=== PATIENT | male | born 1970 | race Caucasian/White ===

== ENCOUNTER 2019-05-02 19:42 | Observation (INO) | payer BC ==
[2019-05-02] MEDS ORDERED: BABY ASPIRIN 81 MG CHEW PO ONE (20:14)
[2019-05-02] MEDS ORDERED: Zofran 4 MG/2 ML VIAL IV ONE (20:14)
[2019-05-02] MEDS ORDERED: Sodium Chloride 0.9% 1000 ML 1,000 ML IV STA (20:14)
[2019-05-02 20:32] LABS: Absolute Neutrophil Ct (ANC) 3.82 (1.4-6.9); BASOPHIL % 0.4 % (0.0-0.4); Basophil (Absolute #) 0.03 (0-0.4); Eosinophil % 2.6 % (0.00-5.0); Eosinophil (Absolute #) 0.18 (0-0.5); Hematocrit 41.4 % (42-50); Hemoglobin 13.7 gm/dl (12.5-18.0); Lymphocyte (Absolute #) 2.17 (1.0-4.6); Lymphocytes % 31.1 % (24.0-44.0); Mean Cell Volume 81.8 fl (78-100); Mean Corpuscular Hemoglobin 27.1 pg (26-32); Mean Corpuscular Hgb Concent. 33.1 g/dl (32-36); Mean Platelet Volume 9.5 fl (6-9.5); Monocyte (Absolute #) 0.78 (0.0-1.3); Monocytes % 11.2 % (0.0-12.0); Neutrophil % 54.7 % (36.0-66.0); Platelet Count 198 K/mm3 (150-450); Red Blood Count 5.06 M/mm3 (4.1-5.6); Red Cell Distribution Width 14.3 % (11.5-14.0)
[2019-05-02] MEDS ORDERED: Zofran 4 MG/2 ML VIAL ONE (20:41)
[2019-05-02] MEDS ORDERED: BABY ASPIRIN 81 MG CHEW ONE (20:41)
[2019-05-02] MEDS ORDERED: Sodium Chloride 0.9% 1000 ML 1,000 ML ONE (20:41)
[2019-05-02 20:54] LABS: ALBUMIN 4.3 g/dL (3.5-5.0); ALKALINE PHOSPHATASE 60 U/L (38-126); ANION GAP 13.8 MEQ/L (5-15); BLOOD UREA NITROGEN 15 mg/dL (9-20); CHLORIDE 104 mmol/L (98-107); Calcium 9.5 mg/dL (8.4-10.2); Carbon Dioxide 26 mmol/L (22-30); Creatinine 1 0.72 mg/dL (0.66-1.25); Glucose 103 mg/dL (74-106); NT PRO BNP 260 pg/mL (0-900); Potassium 3.5 mmol/L (3.5-5.1); SGOT/AST 29 U/L (17-59); SGPT/ALT 25 U/L (0-50); SODIUM 141 mmol/L (137-145)
--- NOTE | 2019-05-02 20:56 | ERPHSYRPT ---
- History of Present Illness Time Seen by Provider: 05/02/19 19:44 Historian: patient Exam Limitations: no limitations Patient Subjective Stated Complaint: pt c/o htn and had an episode of chest discomfort but is not having that now. Pt states, "I think I may be dehydrated ". Triage Nursing Assessment: pt ambulated to rm 4, alert and oriented x3, plesant and cooperative. Pt c/o htn tonight with a weird sensation down his legs. Pt had an "episode" of chest pain this evening but denies any c/p at this time. Pt is very anxious due to some recent cardiac/lungs tests done by Dr. Almonte and Dr. Maciel. Lungs clear, abd soft with active bs x4 quad, nontender. Physician History: Patient is here for leg tingling and chest pain. It started earlier tonight. He then took his blood pressure and it was elevated. Therefore, came into the ER. Patient is no asymptomatic. Timing/Duration: today Activities at Onset: none Quality: aching Location: substernal Chest Pain Radiation: no radiation Severity of Pain-Max: mild Severity of Pain-Current: mild Modifying Factors: Improves With: nothing Associated Symptoms: other (No SOB, N/V, patient has lower leg tingling ) Aspirin Treatment Today: no aspirin today Allergies/Adverse Reactions: No Known Drug Allergies Allergy (Unverified 05/02/19 20:09) Home Medications: Famotidine [Pepcid] 40 mg PO DAILY 05/02/19 [History] Metoprolol Succinate 50 mg PO DAILY 05/02/19 [History] Sertraline HCl [Zoloft] 100 mg PO DAILY 05/02/19 [History] Hx Tetanus, Diphtheria Vaccination/Date Given: Yes Hx Influenza Vaccination/Date Given: No Hx Pneumococcal Vaccination/Date Given: No Immunizations Up to Date: Yes - Review of Systems Constitutional: No Fever, No Chills Eyes: No Symptoms Ears, Nose, & Throat: No Symptoms Respiratory: No Cough, No Dyspnea Cardiac: Chest Pain, No Edema, No Syncope Abdominal/Gastrointestinal: No Abdominal Pain, No Nausea, No Vomiting, No Diarrhea Genitourinary Symptoms: No Dysuria Musculoskeletal: No Back Pain, No Neck Pain Skin: No Rash Neurological: No Dizziness, No Focal Weakness, No Sensory Changes Psychological: No Symptoms Endocrine: No Symptoms All Other Systems: Reviewed and Negative - Past Medical History Pertinent Past Medical History: Yes Neurological History: No Pertinent History ENT History: No Pertinent History Cardiac History: Angina, Hypertension Respiratory History: Bronchitis Endocrine Medical History: No Pertinent History Musculoskeletal History: No Pertinent History GI Medical History: GERD, Gallbladder Disease History: Other Psycho-Social History: Anxiety Male Reproductive Disorders: No Pertinent History Other Medical History: cyst to ureter - Past Surgical History Past Surgical History: Yes Neuro Surgical History: No Pertinent History Cardiac: Cardiac Catheterization Respiratory: No Pertinent History Gastrointestinal: Appendectomy, Cholecystectomy Genitourinary: Other Musculoskeletal: No Pertinent History Male Surgical History: No Pertinent History Other Surgical History: rotaruter to ureter due to cyst - Social History Smoking Status: Former smoker Exposure to second hand smoke: Yes Drug Use: none Patient Lives Alone: No - Nursing Vital Signs Nursing Vital Signs: Initial Vital Signs Temperature 97.8 F 05/02/19 19:42 Pulse Rate 83 05/02/19 19:42 Respiratory Rate 15 05/02/19 19:42 Blood Pressure 152/83 05/02/19 19:42 O2 Sat by Pulse Oximetry 96 05/02/19 19:42 Pain Scale Pain Intensity 0 - Physical Exam General Appearance: no apparent distress, alert Eye Exam: PERRL/EOMI, eyes nml inspection Ears, Nose, Throat Exam: normal ENT inspection, moist mucous membranes Neck Exam: normal inspection, non-tender, supple, full range of motion Respiratory Exam: normal breath sounds, lungs clear, No respiratory distress Cardiovascular Exam: regular rate/rhythm, normal heart sounds Gastrointestinal/Abdomen Exam: soft, No tenderness, No mass Back Exam: normal inspection, No CVA tenderness, No vertebral tenderness Extremity Exam: normal inspection, normal range of motion Neurologic Exam: alert, oriented x 3, cooperative, normal mood/affect, sensation nml, No motor deficits Skin Exam: normal color, warm, dry SpO2: 96 Ordered Tests: Active Orders 24 hr Category Date Time Status EKG-ER Only STAT Care 05/02/19 20:14 Active IV Insertion STAT Care 05/02/19 20:14 Active CHEST 2 VIEWS (PA AND LAT) Stat Exams 05/02/19 20:15 Taken CBC W DIFF Stat Lab 05/02/19 20:28 Completed CMP Stat Lab 05/02/19 20:28 Completed D-DIMER QUANTITATION Stat Lab 05/02/19 20:28 Completed NT PRO BNP Stat Lab 05/02/19 20:28 Completed TROPONIN Q3H Lab 05/02/19 20:28 Completed Transfer Order Routine Transfer 05/02/19 Ordered Medication Summary Discontinued Medications Generic Name Dose Route Start Last Admin Trade Name Merna PRN Reason Stop Dose Admin Aspirin 324 mg 05/02/19 20:14 05/02/19 20:42 Baby Aspirin 81 Mg Chew PO 05/02/19 20:15 324 mg STAT ONE Administration Aspirin Confirm 05/02/19 20:41 Baby Aspirin 81 Mg Chew Administered 05/02/19 20:42 Dose 324 mg .ROUTE .STK-MED ONE Sodium Chloride 1,000 mls @ 999 mls/hr 05/02/19 20:14 05/02/19 20:42 Sodium Chloride 0.9% 1000 Ml IV 05/02/19 21:14 999 mls/hr .Q1H1M STA Administration Sodium Chloride Confirm 05/02/19 20:41 Sodium Chloride 0.9% 1000 Ml Administered 05/02/19 20:42 Dose 1,000 mls @ ud .ROUTE .STK-MED ONE Ondansetron HCl 4 mg 05/02/19 20:14 05/02/19 20:42 Zofran 4 Mg/2 Ml Vial IV 05/02/19 20:15 4 mg STAT ONE Administration Ondansetron HCl Confirm 05/02/19 20:41 Zofran 4 Mg/2 Ml Vial Administered 05/02/19 20:42 Dose 4 mg .ROUTE .STK-MED ONE Lab/Rad Data: Laboratory Result Diagrams 05/02/19 20:28 05/02/19 20:28 Laboratory Results 05/02/19 05/02/19 05/02/19 Range/Units 20:28 20:28 20:28 WBC (4.0-10.5) K/mm3 RBC (4.1-5.6) M/mm3 Hgb (12.5-18.0) gm/dl Hct (42-50) % MCV (78-100) fl MCH (26-32) pg MCHC (32-36) g/dl RDW (11.5-14.0) % Plt Count (150-450) K/mm3 MPV (6-9.5) fl Gran % (36.0-66.0) % Eos # (Auto) (0-0.5) Absolute Lymphs (auto) (1.0-4.6) Absolute Monos (auto) (0.0-1.3) Lymphocytes % (24.0-44.0) % Monocytes % (0.0-12.0) % Eosinophils % (0.00-5.0) % Basophils % (0.0-0.4) % Absolute Granulocytes (1.4-6.9) Basophils # (0-0.4) D-Dimer 229 (215-500) ng/mL Sodium 141 (137-145) mmol/L Potassium 3.5 (3.5-5.1) mmol/L Chloride 104 (98-107) mmol/L Carbon Dioxide 26 (22-30) mmol/L Anion Gap 13.8 (5-15) MEQ/L BUN 15 (9-20) mg/dL Creatinine 0.72 (0.66-1.25) mg/dL Estimated GFR > 60.0 ML/MIN Glucose 103 (74-106) mg/dL Calcium 9.5 (8.4-10.2) mg/dL Total Bilirubin 1.70 H (0.2-1.3) mg/dL AST 29 (17-59) U/L ALT 25 (0-50) U/L Alkaline Phosphatase 60 (38-126) U/L Troponin I 0.015 (0.000-0.034) ng/mL NT-Pro-B Natriuret Pep 260 (0-900) pg/mL Serum Total Protein 8.0 (6.3-8.2) g/dL Albumin 4.3 (3.5-5.0) g/dL 05/02/19 Range/Units 20:28 WBC 7.0 (4.0-10.5) K/mm3 RBC 5.06 (4.1-5.6) M/mm3 Hgb 13.7 (12.5-18.0) gm/dl Hct 41.4 L (42-50) % MCV 81.8 (78-100) fl MCH 27.1 (26-32) pg MCHC 33.1 (32-36) g/dl RDW 14.3 H (11.5-14.0) % Plt Count 198 (150-450) K/mm3 MPV 9.5 (6-9.5) fl Gran % 54.7 (36.0-66.0) % Eos # (Auto) 0.18 (0-0.5) Absolute Lymphs (auto) 2.17 (1.0-4.6) Absolute Monos (auto) 0.78 (0.0-1.3) Lymphocytes % 31.1 (24.0-44.0) % Monocytes % 11.2 (0.0-12.0) % Eosinophils % 2.6 (0.00-5.0) % Basophils % 0.4 (0.0-0.4) % Absolute Granulocytes 3.82 (1.4-6.9) Basophils # 0.03 (0-0.4) D-Dimer (215-500) ng/mL Sodium (137-145) mmol/L Potassium (3.5-5.1) mmol/L Chloride (98-107) mmol/L Carbon Dioxide (22-30) mmol/L Anion Gap (5-15) MEQ/L BUN (9-20) mg/dL Creatinine (0.66-1.25) mg/dL Estimated GFR ML/MIN Glucose (74-106) mg/dL Calcium (8.4-10.2) mg/dL Total Bilirubin (0.2-1.3) mg/dL AST (17-59) U/L ALT (0-50) U/L Alkaline Phosphatase (38-126) U/L Troponin I (0.000-0.034) ng/mL NT-Pro-B Natriuret Pep (0-900) pg/mL Serum Total Protein (6.3-8.2) g/dL Albumin (3.5-5.0) g/dL - Progress Progress: improved Air Movement: good Progress Note: 05/02/19 20:59 DDx includes AK, STEMI, infection, PNA, PTX - EKG, labs, fluids, ASA 05/02/19 21:57 Patient is feeling improved. First troponin is negative. I discussed with reception agent PCP, Dr. Espinoza. Given age and risk factors, they will admit patient for observation, serial troponins. Patient states their understanding and will be admitted. Discussed with : Shanda Will see patient in: hospital (observation) Counseled pt/family regarding: diagnosis, need for follow-up - Departure Departure Disposition: Observation Clinical Impression: Chest pain Condition: Stable Critical Care Time: No Referrals: MESSI ESPINOZA [Primary Care Provider] -
[2019-05-02] MEDS ORDERED: Zofran 4 MG/2 ML VIAL IV PRN (22:13)
[2019-05-02] MEDS ORDERED: TYLENOL 325 MG PO PRN (22:13)
[2019-05-02] MEDS ORDERED: Senokot-S Tablet PO PRN (22:13)
[2019-05-02] MEDS ORDERED: MILK OF MAGNESIA 30 ML PO PRN (22:13)
[2019-05-02] MEDS: Sodium Chloride 0.9% 500 ML 500 ML IV SCH (23:02)
[2019-05-02] MEDS: xanAX 0.5 MG PO SCH (23:52)
[2019-05-03 05:16] LABS: Risk Ratio 5.1
[2019-05-03] MEDS: MAALOX ES 30 ML UNIT DOSE PO PRN ×2 (08:21→16:04)
--- NOTE | 2019-05-03 09:10 | XRAY ---
Indication: Chest pain. Comparison: February 12, 2019. PA/lateral chest demonstrates lungs inflated without focal infiltrate, consolidation, or large effusion. Previous right upper lung ill-defined nodular densities are not reproducible. Heart and mediastinal structures within normal limits. Bony thorax intact again with mild degenerative changes. Impression: Nonacute chest.
[2019-05-03] MEDS ORDERED: GI COCKTAIL 45 ML (Maalox/Lidocaine) PO ONE (10:34)
[2019-05-03] MEDS ORDERED: Protonix 40MG Tablet PO ONE (10:37)
[2019-05-03] MEDS ORDERED: Ativan 0.5 MG PO PRN (12:46)
[2019-05-03] MEDS: ZOLOFT 50 MG TABLET PO SCH (12:59)
[2019-05-03] MEDS: Pepcid 20 MG PO SCH (13:00)
[2019-05-03] MEDS ORDERED: Toprol-Xl 25MG Tablets PO SCH (13:00)
[2019-05-03] MEDS: ATARAX 25 MG PO PRN (18:06)
[2019-05-03] MEDS: Toprol-Xl 25MG Tablets PO SCH (20:55)
[2019-05-03] MEDS: Sodium Chloride 0.9% 500 ML 500 ML IV SCH (21:01)
[2019-05-04] MEDS: xanAX 0.5 MG PO SCH ×2 (01:53→21:13)
[2019-05-04] MEDS: Protonix 40MG Tablet PO SCH (09:17)
[2019-05-04] MEDS: Pepcid 20 MG PO SCH (09:17)
[2019-05-04] MEDS: Toprol-Xl 25MG Tablets PO SCH ×2 (09:17→21:13)
[2019-05-04] MEDS: ZOLOFT 50 MG TABLET PO SCH (09:17)
[2019-05-04] MEDS ORDERED: NON-FORMULARY ITEM (Famotidine [Pepcid] 40 MG) PO SCH (10:00)
[2019-05-04] MEDS ORDERED: NON-FORMULARY ITEM (Sertraline Hcl [Zoloft] 100 MG) PO SCH (10:00)
[2019-05-04] MEDS: ATARAX 25 MG PO PRN ×2 (13:37→21:13)
--- NOTE | 2019-05-04 14:01 | PCM.DS ---
Discharge Summary Date of Admission: 05/02/19 22:11 Admitting Physician: MESSI ESPINOZA Consults: Consults on Case 05/03/19 12:32 Consult Tele-Health [Tele-Health Consult] ROUTINE Primary Care Provider: MESSI ESPINOZA Allergies Allergies No Known Drug Allergies Allergy (Unverified 05/02/19 20:09) Hospital Summary - Hospital Course Hospital Course: Pt is a 48 yo male pt of Dr. Espinoza with HTN, PVCs, and a heart murmur who was admitted through ER with chest pain. His troponins were detectable but negative throughout his stay. He is apparently in the midst of a cardiac workup with DR. Abel, which has included an echo and MRI of the heart, and he is scheduled for a lexiscan stress test. Pt indicates his EF was low. His telemetry shows HR between 65 and 95, with a short period of PACs in which he complained of "fluttering." Today he complains that his L and R chest are hurting with pressure. His burning chest pain from yesterday has stopped. He says he is short of breath. He complains of feeling like he's going to pass out at times. His main complaint when I initially spoke with him this morning was that "my arms and legs aren't getting oxygen." He was unable to tell me exactly what that meant, but he did end up saying that he thought his legs would feel better when he could remove the JAGDISH hose. He thinks his heart is "racing" when he is up and active, but again his highest HR is in the 90s. He is extremely anxious. He took atarax last night and slept for 8 hours, which his states "was the best 8 hours of my life," and now he is afraid to take any; he says he may take 1/4 of a pill. He tells me he doesn't think he will make it to Monday to get further testing done. He will be discharged to home. He tells the respiratory therapist that if he is discharged he will go to [facility]. - Vitals & Intake/Output Vital Signs: Vital Signs Temperature 98 F 05/04/19 11:02 Pulse Rate 76 05/04/19 11:02 Respiratory Rate 20 05/04/19 11:02 Blood Pressure 126/79 05/04/19 11:02 O2 Sat by Pulse Oximetry 95 05/04/19 11:02 Intake & Output: Intake & Output 05/02/19 05/03/19 05/04/19 05/05/19 11:59 11:59 11:59 11:59 Intake Total 568 1830 420 Output Total 3000 450 Balance 568 -1170 -30 Weight 96 kg 96.2 kg - Lab Result Diagrams: 05/02/19 20:28 05/02/19 20:28 Lab Results-Last 24 Hrs: Lab Results-Last 24 Hours 05/03/19 05/03/19 05/04/19 Range/Units 15:11 20:56 05:30 Troponin I 0.024 0.023 0.020 (0.000-0.034) ng/mL - Radiology Exams Ordered Rad Exams-Entire Visit: Radiology Procedures Category Date Time Status CHEST 2 VIEWS (PA AND LAT) Stat Exams 05/02/19 20:15 Completed - Procedures and Test Procedures and Tests throughout Hospitalization: Therapy Orders & Screens 05/02/19 22:13 EKG Q8HX2,QAMX3,PRN Comment: 05/03/19 04:00 EKG ROUTINE Comment: Diagnosis: chest pain 05/03/19 10:08 EKG ROUTINE Comment: Diagnosis: chest pain 05/04/19 05:00 EKG DAILY Comment: Diagnosis: chest pain 05/05/19 05:00 EKG DAILY Comment: Diagnosis: chest pain 05/06/19 05:00 EKG DAILY Comment: Diagnosis: chest pain Discharge Exam General Appearance: no apparent distress, alert, other (pacing by his bedside; lays in bed for exam.) Neurologic Exam: oriented x 3, cooperative, other (speech is normal) Eye Exam: eyes nml inspection Ears, Nose, Throat Exam: moist mucous membranes Neck Exam: normal inspection Respiratory Exam: normal breath sounds, lungs clear, No crackles/rales, No rhonchi, No wheezing Cardiovascular Exam: regular rate/rhythm, normal heart sounds, murmur (III/ systolic murmur) Gastrointestinal/Abdomen Exam: soft, normal bowel sounds, No tenderness, No distention, No mass, No guarding, No rebound Back Exam: normal inspection, No rash Extremity Exam: normal inspection, other (radial pulses and pedal pulses 2+ bilaterally), No pedal edema, No swelling Skin Exam: normal color, warm, dry, No rash Final Diagnosis/Problem List - Final Discharge Diagnosis/Problem (1) Heart murmur Current Visit: Yes Status: Acute Assessment & Plan: He does have a loud heart murmur but is in the midst of a cardiac workup and is being seen by cardiothoracic surgery. I discussed with pt and his at length that he is probably having some discomfort, SOB etc because there ARE some cardiac issues, but he has not had an GA just before or during this stay. He should continue his workup. He should try to manage his anxiety with the atarax (and apparently he does have some xanax at home). EKGs are non acute. He will get one more troponin then will send pt home. Code(s): R01.1 - CARDIAC MURMUR, UNSPECIFIED (2) Anxiety Current Visit: Yes Status: Acute Code(s): F41.9 - ANXIETY DISORDER, UNSPECIFIED (3) Chest pain Current Visit: Yes Status: Acute Assessment & Plan: will continue PPI at home x 2 wks since his burning chest discomfort did stop. Code(s): R07.9 - CHEST PAIN, UNSPECIFIED - Discharge Disposition: Home, Self-Care Condition: Stable Prescriptions: New Hydroxyzine HCl 25 mg [Atarax 25 mg] 25 mg PO TID PRN PRN #30 tablet PRN Reason: Anxiety PANTOPRAZOLE 40 mg Tablet [Protonix 40MG Tablet] 40 mg PO DAILY #14 tab Continue Sertraline HCl [Zoloft] 100 mg PO DAILY Famotidine [Pepcid] 40 mg PO DAILY Metoprolol Succinate 25 mg PO DAILY ALPRAZolam [Alprazolam] 0.5 mg PO QHS Outpatient Orders: Stress Test: Lexiscan Location: RESPIRATORY THERAPY Instructions: Chest Pain (DC) Additional Instructions: Stress Test is scheduled for 05/10/19 @ 6:30 a.m. at [facility]. Follow up with: MESSI ESPINOZA [Primary Care Provider] - 1 Week LUIS MIGUEL FIELD [CONSULTING PHYSICIAN] - 05/06/19 4:00 pm Forms: Discharge Instructions
[2019-05-05] MEDS ORDERED: Ativan 1 MG PO ONE (04:33)
[2019-05-05 07:25] VITALS: PULSE 59; O2SAT 95
[2019-05-05] MEDS: ZOLOFT 50 MG TABLET PO SCH (10:09)
[2019-05-05] MEDS: Pepcid 20 MG PO SCH (10:09)
[2019-05-05] MEDS: Protonix 40MG Tablet PO SCH (10:10)
[2019-05-05] MEDS: Toprol-Xl 25MG Tablets PO SCH (10:10)
[2019-05-05 12:43] VITALS: BP 117/69
--- NOTE | 2019-05-05 14:28 | PCM.DS ---
Discharge Summary Date of Admission: 05/02/19 22:11 Admitting Physician: MESSI ESPINOZA Consults: Consults on Case 05/03/19 12:32 Consult Tele-Health [Tele-Health Consult] ROUTINE 05/05/19 08:00 Psychiatric Consult ROUTINE Primary Care Provider: MESSI ESPINOZA Allergies Allergies No Known Drug Allergies Allergy (Unverified 05/02/19 20:09) Hospital Summary - Hospital Course Hospital Course: Pt is a 48 yo male pt of Dr. Espinoza with HTN, PVCs, and a heart murmur who was admitted through ER with chest pain. His troponins were detectable but negative throughout his stay. He is apparently in the midst of a cardiac workup with DR. Abel, which has included an echo and MRI of the heart, and he is scheduled for a lexiscan stress test. Pt indicates his EF was low. Yesterday he had multiple complaints about chest pain, fluttering, heart racing , and feeling faint. Today when I see him, he is lying quietly in bed. He says he feels good, just "has episodes" of chest burning. Has been luis po. When we discuss discharge to home and his d/c meds, he states, "perfect." He did have a consult with [facility] today for anxiety, the results of which are not back. - Vitals & Intake/Output Vital Signs: Vital Signs Temperature 98.2 F 05/05/19 12:42 Pulse Rate 59 L 05/05/19 12:42 Respiratory Rate 20 05/05/19 12:42 Blood Pressure 117/69 05/05/19 12:42 O2 Sat by Pulse Oximetry 95 05/05/19 12:42 Intake & Output: Intake & Output 05/03/19 05/04/19 05/05/19 05/06/19 11:59 11:59 11:59 11:59 Intake Total 568 1830 2280 360 Output Total 3000 2300 300 Balance 568 -1170 -20 60 Weight 96 kg 96.2 kg 94.2 kg - Lab Result Diagrams: 05/02/19 20:28 05/02/19 20:28 Lab Results-Last 24 Hrs: Lab Results-Last 24 Hours 05/04/19 05/04/19 05/04/19 Range/Units 15:00 18:19 19:49 Troponin I 0.027 0.024 0.019 (0.000-0.034) ng/mL 05/04/19 05/05/19 05/05/19 Range/Units 23:12 01:52 05:08 Troponin I 0.018 0.019 0.017 (0.000-0.034) ng/mL 05/05/19 Range/Units 08:10 Troponin I 0.018 (0.000-0.034) ng/mL - Procedures and Test Procedures and Tests throughout Hospitalization: Therapy Orders & Screens 05/02/19 22:13 EKG Q8HX2,QAMX3,PRN Comment: 05/03/19 04:00 EKG ROUTINE Comment: Diagnosis: chest pain 05/03/19 10:08 EKG ROUTINE Comment: Diagnosis: chest pain 05/04/19 05:00 EKG DAILY Comment: Diagnosis: chest pain 05/04/19 16:21 EKG ROUTINE Comment: Diagnosis: chest pain 05/05/19 05:00 EKG DAILY Comment: Diagnosis: chest pain 05/06/19 05:00 EKG DAILY Comment: Diagnosis: chest pain Discharge Exam General Appearance: no apparent distress, alert Neurologic Exam: oriented x 3, cooperative Eye Exam: eyes nml inspection Ears, Nose, Throat Exam: normal ENT inspection Neck Exam: normal inspection Respiratory Exam: normal breath sounds, lungs clear, No crackles/rales, No rhonchi, No wheezing Cardiovascular Exam: regular rate/rhythm, normal heart sounds, murmur (III/ sys murmur) Gastrointestinal/Abdomen Exam: soft, normal bowel sounds, No tenderness, No distention, No mass, No guarding, No rebound Extremity Exam: normal inspection, No pedal edema, No swelling Skin Exam: normal color, warm, dry, No rash Final Diagnosis/Problem List - Final Discharge Diagnosis/Problem (1) Chest pain Current Visit: Yes Status: Acute Assessment & Plan: ruled out for SD. Has had a total of 16 negative troponins. While his 2nd troponin here was neg yesterday, it was a little higher than the previous troponin, and that's why pt was kept another night. Code(s): R07.9 - CHEST PAIN, UNSPECIFIED (2) Heart murmur Current Visit: Yes Status: Acute Assessment & Plan: Getting workup currently with cardiothoracic surgery. Code(s): R01.1 - CARDIAC MURMUR, UNSPECIFIED (3) Anxiety Current Visit: Yes Status: Acute Assessment & Plan: Was recently (04/30/19) put on zoloft, which I hope will help his obsessive worry about his health. Code(s): F41.9 - ANXIETY DISORDER, UNSPECIFIED - Discharge Disposition: Home, Self-Care Condition: Stable Prescriptions: New Hydroxyzine HCl 25 mg [Atarax 25 mg] 25 mg PO TID PRN PRN #30 tablet PRN Reason: Anxiety PANTOPRAZOLE 40 mg Tablet [Protonix 40MG Tablet] 40 mg PO DAILY #14 tab Continue Sertraline HCl [Zoloft] 100 mg PO DAILY Famotidine [Pepcid] 40 mg PO DAILY Metoprolol Succinate 25 mg PO DAILY ALPRAZolam [Alprazolam] 0.5 mg PO QHS Outpatient Orders: Stress Test: Ronnie Location: RESPIRATORY THERAPY Instructions: Chest Pain (DC) Additional Instructions: Stress Test is scheduled for 05/10/19 @ 6:30 a.m. at [facility]. Follow up with: MESSI ESPINOZA [Primary Care Provider] - 1 Week LUIS MIGUEL FIELD [CONSULTING PHYSICIAN] - 05/06/19 4:00 pm Forms: Discharge Instructions
== END 2019-05-05 15:30 | disposition home or self-care (01) ==
LOC: ED 19:42 → MED SURG 22:11
PROVIDERS: ADMIT Family Medicine; ATTEND Family Medicine
DX: R07.9 Chest pain, unspecified (principal); R01.1 Cardiac murmur, unspecified; I10 Essential (primary) hypertension; I49.3 Ventricular premature depolarization; R06.02 Shortness of breath; F41.9 Anxiety disorder, unspecified; Z79.899 Other long term (current) drug therapy
CPT/HCPCS: 36000; 36415; 71046; 80053; 80061; 82164; 83721; 83880; 84484; 85025; 85379; 90791; 93005; 93268; 96374; 99285; G0378; Q3014; J2405; A9270-GY